=== PATIENT | female | born 2000 | race Hispanic/Latino ===

== ENCOUNTER → 2024-08-20 14:16 | Outpatient (CLI) | payer OTHER, SELFPAY ==
--- NOTE | 2024-08-20 14:18 | DI.US.S_ITS ---
PROCEDURE: US PELVIC COMPLETE INDICATIONS: PELVIC PAIN,HEAVY MENSTRUAL BLEEDING,CRAMPS TECHNIQUE: Real-time scanning was performed of the pelvic organs, with image documentation. Additional endovaginal scanning was necessary due to incomplete visualization of the adnexal and endometrial structures by transabdominal scanning. COMPARISON: None. FINDINGS: Uterus: Uterus is anteverted and normal in size at 7.1 x 3.1 x 4.6 cm. The myometrium is homogeneous. The endometrium measures 9 mm combined thickness. Ovaries: The right ovary measures 3.5 x 2.4 x 2.1 cm, with a calculated ovarian volume of 9.2 cc. The left ovary measures 5.0 x 3.7 x 4.8 cm, with a calculated ovarian volume of 46.2 cc. Left ovarian cyst with debris measuring 4.6 x 3.2 x 4.0 cm. Less than 12 follicles can be seen in each ovary. No adnexal masses are seen. Other: No pathologic free abdominal or pelvic fluid. IMPRESSION: Endometrium is normal in thickness measuring 9 mm. Left ovarian cyst with debris measuring 4.6 cm, possible hemorrhagic cyst versus endometrioma. Recommend follow-up ultrasound in 6-12 weeks to assess for resolution. We strive to produce accurate, complete, and clear reports of imaging services. To assist us in improving patient care, this report was composed using standard report templates and voice recognition software. Therefore, it may contain abnormal punctuation, insertions and/or omissions. Occasional wrong-word or sound-alike substitutions may occur. Though we review the report and make efforts to correct it, we do recommend that the report be read carefully in proper context to recognize any text inaccuracies. Dictated by: Cecilio Santillan M.D. on 08/20/2024 at 19:52 Approved by: Cecilio Santillan M.D. on 08/20/2024 at 19:54
== END ==
PROVIDERS: Referring Provider Nurse Practitioner Family; Visit Provider Nurse Practitioner Family
DX: N92.0 Excessive and frequent menstruation with regular cycle (principal); N94.6 Dysmenorrhea, unspecified; R10.2 Pelvic and perineal pain; N83.202 Unspecified ovarian cyst, left side
CPT/HCPCS: 76856; 93976

== ENCOUNTER → 2024-10-02 15:38 | Outpatient (CLI) | payer OTHER, SELFPAY ==
--- NOTE | 2024-10-02 15:39 | DI.US.S_ITS ---
PROCEDURE: US PELVIC COMPLETE INDICATIONS: FOLLOW UP OVARIAN CYST TECHNIQUE: Real-time scanning was performed of the pelvic organs, with image documentation. Additional endovaginal scanning was necessary due to incomplete visualization of the adnexal and endometrial structures by transabdominal scanning. COMPARISON: [facility], , US PELVIC COMPLETE, 08/20/2024, 14:30. FINDINGS: Uterus: Uterus is anteverted and normal in size at 7.4 x 5.0 x 3.1 cm. The myometrium is homogeneous. The endometrium measures 3.4 mm combined thickness. Ovaries: The right ovary measures 3.5 x 2.9 x 2.8 cm, with a calculated ovarian volume of 14.5 cc. Thick walled right ovarian cyst with irregular borders measuring 1.9 x 1.6 x 1.2 cm. The left ovary measures 3.6 x 2.2 x 3.0 cm, with a calculated ovarian volume of 12.6 cc. Likely simple left ovarian cyst measuring 2.1 cm with thin septation. Greater than 12 follicles can be seen in each ovary. No adnexal masses are seen. Other: No pathologic free abdominal or pelvic fluid. IMPRESSION: Resolution of prior left ovarian cyst. New thick-walled cyst in the right ovary measuring 1.9 cm, may represent a collapsing cyst. Likely simple left ovarian cyst measuring 2.1 cm with thin septation. Greater than 12 sub-5 mm follicular cysts bilaterally which can be associated with polycystic ovarian morphology. We strive to produce accurate, complete, and clear reports of imaging services. To assist us in improving patient care, this report was composed using standard report templates and voice recognition software. Therefore, it may contain abnormal punctuation, insertions and/or omissions. Occasional wrong-word or sound-alike substitutions may occur. Though we review the report and make efforts to correct it, we do recommend that the report be read carefully in proper context to recognize any text inaccuracies. Dictated by: Cecilio Santillan M.D. on 10/02/2024 at 17:05 Approved by: Cecilio Santillan M.D. on 10/02/2024 at 17:09
== END ==
PROVIDERS: Family Provider Physician Assistant; PCP Physician Assistant; Referring Provider Student in an Organized Health Care Education/Training Program; Visit Provider Student in an Organized Health Care Education/Training Program
DX: N83.202 Unspecified ovarian cyst, left side (principal); N83.201 Unspecified ovarian cyst, right side
CPT/HCPCS: 76830; 76856

== ENCOUNTER → 2024-11-05 12:41 | Outpatient (CLI) | payer OTHER, SELFPAY | LOC: PHYS 12:42 | PROVIDERS: Family Provider Physician Assistant; PCP Physician Assistant; Referring Provider Nurse Practitioner Family; Visit Provider Nurse Practitioner Family | DX: M25.531 Pain in right wrist (principal) | CPT/HCPCS: 95886; 95911 ==